=== PATIENT | male | born 1955 | race African-American/Black ===

== ENCOUNTER 2018-05-11 13:41 | Inpatient (IN) | payer BC ==
[~2018-05-11] VITALS: Ht 177.8 cm; Wt 97.5 kg
[2018-05-11] MEDS ORDERED: DEXAMETHASONE SOD PHOS 20 MG/5 ML VIAL. IM ONE (14:15)
[2018-05-11] MEDS ORDERED: MORPHINE SULFATE 10 MG/ML VIAL. SQ ONE (14:15)
[2018-05-11] MEDS ORDERED: KETOROLAC 60 MG/2 ML INJ. IM ONE (14:15)
[2018-05-11] MEDS ORDERED: diazePAM 5 MG TABLET PO ONE (14:15)
--- NOTE | 2018-05-11 14:20 | PHYS DOC ---
Adult General Chief Complaint Chief Complaint: BACK PAIN - NO INJURY HPI HPI Patient is a 62 year old male who presents complaining of 10 out of 10 left groin pain radiating into the left lower back that began one week ago. Patient states the pain is worse on certain sitting positions and movement. Patient states he tried taking [id number] pain relievers and hydrocodone but did not obtain any relief so he stopped taking them. Patient denies any injury. Denies any loss of bowel /bladder function. Denies any urgency frequency dysuria or hematuria. PCP Dr. Ben Tan. Review of Systems Review of Systems Constitutional: Denies fever or chills [] Eyes: Denies change in visual acuity, redness, or eye pain [] HENT: Denies nasal congestion or sore throat [] Respiratory: Denies cough or shortness of breath [] Cardiovascular: No additional information not addressed in HPI [] GI: Denies abdominal pain, nausea, vomiting, bloody stools or diarrhea [] : Denies dysuria or hematuria [] Musculoskeletal: Reports left groin pain radiating into the left buttock Integument: Denies rash or skin lesions [] Neurologic: Denies headache, focal weakness or sensory changes [] All other systems were reviewed and found to be within normal limits, except as documented in this note. Current Medications Current Medications Current Medications Medications (Trade) Dose Ordered Sig/Shira Start Time Stop Time Status Last Admin Dose Admin Clonidine HCl (Catapres) 0.1 mg Q6HRS PRN 05/11/18 16:30 UNV Dexamethasone Sodium Phosphate (Decadron) 10 mg 1X ONCE 05/11/18 14:15 05/11/18 14:20 DC 05/11/18 14:29 10 MG Diazepam (Valium) 5 mg 1X ONCE 05/11/18 14:15 05/11/18 14:20 DC 05/11/18 14:34 5 MG Ketorolac Tromethamine (Toradol Im) 60 mg 1X ONCE 05/11/18 14:15 05/11/18 14:20 DC 05/11/18 14:31 60 MG Morphine Sulfate (Morphine Sulfate) 4 mg PRN Q2HR PRN 05/11/18 16:30 05/12/18 16:29 UNV Ondansetron HCl (Zofran) 4 mg PRN Q8HRS PRN 05/11/18 16:30 05/12/18 16:29 UNV Allergies Allergies Allergies Coded Allergies Type Severity Reaction Last Updated Verified lisinopril Allergy Severe SWELLING 05/11/18 Yes Physical Exam Physical Exam Constitutional: Well developed, well nourished, no acute distress, non-toxic appearance. [] HENT: Normocephalic, atraumatic, bilateral external ears normal, oropharynx moist, no oral exudates, nose normal. [] Eyes: PERRLA, EOMI, conjunctiva normal, no discharge. [] Neck: Normal range of motion, no tenderness, supple, no stridor. [] Cardiovascular:Heart rate regular rhythm, no murmur [] Lungs & Thorax: Bilateral breath sounds clear to auscultation [] Abdomen: Bowel sounds normal, soft, no tenderness, no masses, no pulsatile masses. [] Skin: Warm, dry, no erythema, no rash. [] Back: No tenderness, no CVA tenderness. [] Extremities: Tenderness on palpation of the left SI joint, no midline lumbar spine tenderness, no cyanosis, no clubbing, ROM intact, no edema. [] Neurologic: Alert and oriented X 3, normal motor function, normal sensory function, no focal deficits noted. [] Psychologic: Affect normal, judgement normal, mood normal. [] Current Patient Data Vital Signs Vital Signs Date Time Temp Pulse Resp B/P (MAP) Pulse Ox O2 Delivery O2 Flow Rate FiO2 05/11/18 15:58 154/87 (109) 05/11/18 14:17 97.6 102 18 97 Room Air 97.6 EKG EKG [] Radiology/Procedures Radiology/Procedures []PROCEDURE: LUMBAR SPINE 2-3V LUMBAR SPINE 2-3V History: LOWER BACK PAIN/ LEFT SIDED PELVIC PAIN. Comparison: January 12, 2017 Right convexity thoracolumbar scoliosis is again identified. Appears similar to the previous study. Degenerative spondylosis with marginal spurring at multiple levels. This also appears similar to the previous exam. No significant spondylolisthesis. No evidence of vertebral body compression fracture IMPRESSION: Lumbar spondylosis with scoliosis. Electronically signed by: Marcelo Henning MD (05/11/2018 3:14 PM) [id number] DICTATED and SIGNED BY: MARCELO HENNING MD DATE: 05/11/18 1510 Course & Med Decision Making Course & Med Decision Making Pertinent Labs and Imaging studies reviewed. (See chart for details) This is a 62-year-old male patient presenting to the ED today with left groin pain radiating to the left buttock one week. Lumbar spine x-rays interpreted by radiologist were noted for spondylosis with the scoliosis, no acute findings. Patient was given morphine 10 mg subcutaneous, Valium, Toradol, Decadron, he states he has not obtained any relief, he is requesting to be admitted. He had a very hard time ambulating from wheel chair to cart. He was holding on anything he can to keep him up. Blood pressure 201/106 in the ED with a heart rate of low 100s. Patient was given clonidine. Patient denies any cardiac or neurological symptoms. Has history of hypertension. Did not take his medications today. Spoke with Dr. Sheriff who accepted patient for admission. Dragon Disclaimer Dragon Disclaimer This electronic medical record was generated, in whole or in part, using a voice recognition dictation system. Departure Departure Impression: Primary Impression: Intractable low back pain Additional Impression: Accelerated hypertension Disposition: ADMITTED INPATIENT Condition: STABLE Referrals: LOBO FELDER (PCP) Problem Qualifiers DANYELL EDEN [employer] May 11, 2018 14:20
--- NOTE | 2018-05-11 15:18 | RAD ---
LUMBAR SPINE 2-3V History: LOWER BACK PAIN/ LEFT SIDED PELVIC PAIN. Comparison: January 12, 2017 Right convexity thoracolumbar scoliosis is again identified. Appears similar to the previous study. Degenerative spondylosis with marginal spurring at multiple levels. This also appears similar to the previous exam. No significant spondylolisthesis. No evidence of vertebral body compression fracture IMPRESSION: Lumbar spondylosis with scoliosis. Electronically signed by: Marcelo Henning MD (05/11/2018 3:14 PM) [id number]
[2018-05-11] MEDS ORDERED: MORPHINE SULFATE 4 MG/ML VIAL. IV PRN (16:30)
[2018-05-11] MEDS ORDERED: cloNIDine HCL 0.1 MG TABLET PO ONE (16:30)
[2018-05-11] MEDS ORDERED: cloNIDine HCL 0.1 MG TABLET PO PRN (16:30)
[2018-05-11] MEDS ORDERED: ONDANSETRON PF 4 MG/2 ML VIAL. IV PRN (16:30)
[2018-05-11 19:00] VITALS: BP 156/94
[2018-05-11] MEDS ORDERED: PRED20TA PO (19:14)
[2018-05-11] MEDS ORDERED: AMLO5TAB7 PO (19:14)
[2018-05-11] MEDS ORDERED: HYDR-2758 PO (19:14)
[2018-05-11] MEDS ORDERED: LOSA1TAB25 PO (19:14)
[2018-05-11 20:04] LABS: BILIRUBIN,URINE NEGATIVE (NEG); CLARITY,URINE CLEAR; COLOR,URINE YELLOW; NITRITE,URINE NEGATIVE (NEG); PH,URINE 5.5; PROTEIN,URINE NEGATIVE (NEG-TRACE)
[2018-05-11 20:24] LABS: BACTERIA,URINE FEW /HPF (0-FEW); HYALINE CASTS, URINE MODERATE /HPF; RBC,URINE OCC /HPF (0-2); SQUAMOUS EPITHELIAL CELL,UR FEW /LPF
[2018-05-11 23:00] VITALS: BP 155/108
[2018-05-12 03:00] VITALS: BP 150/97
[2018-05-12 07:00] VITALS: BP 156/96
[2018-05-12 07:20] LABS: BASO % 0 % (0-3); EOS % 0 % (0-3); HEMATOCRIT 43.2 % (39.0-53.0); HEMOGLOBIN 15.2 g/dL (13.0-17.5); LYMPH # 1.1 x10^3/uL (1.0-4.8); LYMPH % 17 % (24-48); MEAN CORPUSCULAR HEMOGLOBIN 30 pg (25-35); MEAN CORPUSCULAR HGB CONC 35 g/dL (31-37); MEAN CORPUSCULAR VOLUME 84 fL (79-100); MONO # 0.5 x10^3/uL (0.0-1.1); MONO % 8 % (0-9); NEUT # 4.9 x10^3uL (1.8-7.7); NEUT % 75 % (31-73); PLATELET COUNT 310 x10^3/uL (140-400); RED BLOOD COUNT 5.15 x10^6/uL (4.30-5.70); RED CELL DISTRIBUTION WIDTH 14.9 % (11.5-14.5); WHITE BLOOD COUNT 6.6 x10^3/uL (4.0-11.0)
[2018-05-12 07:36] LABS: CALCIUM 8.8 mg/dL (8.5-10.1); CREATININE 1.3 mg/dL (0.7-1.3); GFR 67.7; POTASSIUM 3.5 mmol/L (3.5-5.1)
--- NOTE | 2018-05-12 08:11 | PDOC1 ---
H & P H&P HPI: Mr. Webb is a 62-year-old male with past medical history of hypertension, hyperlipidemia, chronic kidney disease stage 2, pemphigus vulgaris, erectile dysfunction who presented to the ER yesterday for lower pelvic pain that radiates to the left buttock that is intractable and was unable to be controlled with pain medication in the emergency room. Of note, the ER performed only a lumbar spine x-ray, and did not evaluate anything related to his abdomen or pelvis. Labs including a UA were fairly unremarkable. He reports this pain has occurred before in 2014 and spontaneously resolved after a thorough workup that was unremarkable per his report. He reports this pain recurred approximately a week ago with increasing pain over the last couple of days. During his last episode he had been doing stretching exercises for possible psoas muscle spasm which had helped that time, but were unhelpful at this time. He denies fever, chills, nausea, vomiting, diarrhea, constipation, melena, hematochezia. He denies penile pain or testicular pain. He denies hernia now or in the past. He denies penile discharge, dysuria, frequency, urgency. ROS: Complete review systems is negative apart from otherwise stated above. PMH: As above Family Hx: Father had congestive heart failure, heart disease, [place], hypertension. Mother had congestive heart failure, diabetes, chronic kidney disease. Social Hx: Nonsmoker, no significant alcohol use. No drug use. Surg Hx: Tonsillectomy Meds: Reviewed and reconciled Allergies: Reviewed PE: Alert, oriented, moderate distress due to pain EOMI, sclera non-icteric Neck supple RRR, no murmur CTAB, no wheezes, crackles or rhonchi Soft, NT, ND, normal bowel sounds, no rebound, guarding. Pain is reproduced with palpation of the left lower pelvic region and just superior to penis. No hernia appreciated. No edema, cyanosis. Normal capillary refill. Calm, cooperative, mood/affect within normal limits Assessment/Plan: Left lower pelvic pain Hypertension Hyperlipidemia Chronic kidney disease stage II Pemphigus vulgaris Cancel lumbar spine MRI as ordered per ED. Obtain CT abdomen and pelvis with contrast and urology consultation. Home meds continued Pain control GAUTAM GREENE MD May 12, 2018 08:11
[2018-05-12] MEDS ORDERED: CONTRAST GIVEN. MC PRN (08:45)
[2018-05-12] MEDS ORDERED: IOHEXOL 300 MG/ML 100ML VIAL. IV ONE (08:45)
[2018-05-12] MEDS ORDERED: IOHEXOL 240 MG/ML 50ML VIAL. PO ONE (08:45)
[2018-05-12] MEDS: KETOROLAC 30 MG/ML VIAL. IV PRN ×2 (08:52→16:44)
[2018-05-12] MEDS: amLODIPine BESYLATE 5 MG TABLET PO SCH (08:52)
[2018-05-12] MEDS: LOSARTAN POTASSIUM 50 MG TABLET. PO SCH (08:52)
[2018-05-12] MEDS: hydroCHLOROthiazide 12.5 MG CAPSULE PO SCH (08:52)
[2018-05-12] MEDS: predniSONE 10 MG TABLET PO SCH (09:00)
[2018-05-12] MEDS: HYDROcodone/APAP 5/325MG 1 TAB TABLET PO PRN ×2 (10:53→20:14)
[2018-05-12 11:00] VITALS: BP 146/98
--- NOTE | 2018-05-12 11:15 | PDOC2 ---
CLARISSAJEAN CARLOS Stephanie CHECK AIRMAN 05/12/18 1115: UROLOGY CONSULT Date of Consult Date of Consult DATE: 05/12/18 TIME: 11:07 Reason for Consult Reason for Consult: Left groin pain radiating into pelvic/mons pubis area Referring Physician Referring Physician: Dr. Sheriff Identification/Chief Complaint Chief Complaint Left groin pain radiating into pelvic/mons pubis area Source Source: Caregiver, Chart review, Patient History of Present Illness Reason for Visit: Patient is a 62 year old male admitted for extreme pain in the left flank/groin area which radiates into his left hip, lower back area. The pain is not over his kidneys at all, and he denies any hematuria, dysuria LUTS/nocturia or history of prostate problems or cancer. He also denies a history of kidney problems, cancer or kidney stones ever. He describers the pain as almost originating on the inside of his left thigh, near his pubic bone and radiating up into his hip joint. He denies any penile or scrotal pain or swelling and his urination is normal. He has been seen by Ortho in the past for this pain, but cannot remember what they told him. His is at bedside and they relate a history of a few different scans in the past two years that did not give them any definitive answers. She has records of a PSA less than 1 in the last year and is requesting PARTNERSHIP MANAGER do a prostate exam for him. Past Medical History Musculoskeletal: low back pain, Other (left hip pain, left groin pain. ) Renal/: No pertinent hx Current Medications Current Medications Current Medications Acetaminophen/ Hydrocodone Bitart (Lortab 5/325) 1 tab PRN Q6HRS PRN PO PAIN Last administered on 05/12/18at 10:53; Start 05/12/18 at 08:45 Amlodipine Besylate (Norvasc) 5 mg DAILY PO Last administered on 05/12/18at 08: 52; Start 05/12/18 at 09:00 Clonidine HCl (Catapres) 0.1 mg PRN Q6HRS PRN PO HYPERTENSION, SEE COMMENTS Last administered on 05/11/18at 22:48; Start 05/11/18 at 16:30; Stop 05/12/18 at 08:41; Status DC Clonidine HCl (Catapres) 0.2 mg 1X ONCE PO ; Start 05/11/18 at 16:30; Stop 05/11/18 at 16:39; Status DC Dexamethasone Sodium Phosphate (Decadron) 10 mg 1X ONCE IM Last administered on 05/11/18at 14:29; Start 05/11/18 at 14:15; Stop 05/11/18 at 14:20; Status DC Diazepam (Valium) 5 mg 1X ONCE PO Last administered on 05/11/18at 14:34; Start 05/11/18 at 14:15; Stop 05/11/18 at 14:20; Status DC Hydrochlorothiazide (Microzide) 12.5 mg DAILY PO Last administered on at 08:52; Start 05/12/18 at 09:00 Info (CONTRAST GIVEN -- Rx MONITORING) 1 each PRN DAILY PRN MC SEE COMMENTS; Start 05/12/18 at 08:45; Stop 05/14/18 at 08:44 Iohexol (Omnipaque 240 Mg/ml) 30 ml 1X ONCE PO Last administered on 05/12/18at 08:45; Start 05/12/18 at 08:45; Stop 05/12/18 at 08:46; Status DC Iohexol (Omnipaque 300 Mg/ml) 75 ml 1X ONCE IV Last administered on 05/12/18at 08:45; Start 05/12/18 at 08:45; Stop 05/12/18 at 08:46; Status DC Ketorolac Tromethamine (Toradol 30mg Vial) 15 mg PRN Q6HRS PRN IV PAIN Last administered on 05/12/18at 08:52; Start 05/12/18 at 08:45; Stop 05/17/18 at 08:44 Ketorolac Tromethamine (Toradol Im) 60 mg 1X ONCE IM Last administered on 05/11at 14:31; Start 05/11/18 at 14:15; Stop 05/11/18 at 14:20; Status DC Losartan Potassium (Cozaar) 100 mg DAILY PO Last administered on 05/12/18at 08: 52; Start 05/12/18 at 09:00 Morphine Sulfate (Morphine Sulfate) 4 mg PRN Q2HR PRN IV PAIN Last administered on 05/12/18at 06:49; Start 05/11/18 at 16:30; Stop 05/12/18 at 08:41 ; Status DC Morphine Sulfate (Morphine Sulfate) 10 mg 1X ONCE SQ Last administered on 05/11at 14:32; Start 05/11/18 at 14:15; Stop 05/11/18 at 14:20; Status DC Ondansetron HCl (Zofran) 4 mg PRN Q8HRS PRN IV NAUSEA/VOMITING; Start 05/11/18 at 16:30; Stop 05/12/18 at 16:29 Prednisone (Prednisone) 10 mg DAILY PO ; Start 05/12/18 at 09:00 Allergies Allergies: Coded Allergies: lisinopril (Verified Allergy, Severe, SWELLING, 05/11/18) ROS Review Of Systems: CONSTITUTIONAL: No fever or chills EYES: No recent changes SKIN: No rash or itching CARDIOVASCULAR: No chest pain, syncope, palpitations, or edema RESPIRATORY: No SOB or cough GASTROINTESTINAL: No nausea, vomiting or abdominal pain NEUROLOGICAL: No headaches or weakness ENDOCRINE: No cold or heat intolerance GENITOURINARY: No urgency or frequency of urination, left going pain, no private area pain MUSCULOSKELETAL: + back pain, joint pain over left hip. LYMPHATICS: No enlarged lymph nodes PSYCHIATRIC: No anxiety or depression Physical Exam Physical Exam: General: Pleasant, no acute distress, well groomed Eyes: conjunctiva anicteric, eyes full range of motion ENT: moist oral mucosa, normal dentition Neck: Trachea midline, no masses Respiratory: unlabored breathing, not using accessory muscles Abdomen: nontender, nondistended, no hepatosplenomegaly, no masses ANITA: Prostate about 40 grams, WNL. Pelvic: scrotal WNL, non tender on exam. scrotal contents WNL. Phallus WNL, No inguinal hernia Vitals VITALS Vital Signs Date Time Temp Pulse Resp B/P (MAP) Pulse Ox O2 Delivery O2 Flow Rate FiO2 05/12/18 10:53 96 Room Air 05/12/18 08:52 77 156/96 05/12/18 07:00 98.8 16 98.8 Labs Labs Laboratory Tests Test 05/11/18 20:00 05/12/18 06:40 Urine Collection Type Unknown Urine Color Yellow Urine Clarity Clear Urine pH 5.5 Urine Specific Addy 1.015 Urine Protein Negative mg/dL (NEG-TRACE) Urine Glucose (UA) Negative mg/dL (NEG) Urine Ketones (Stick) 40 mg/dL (NEG) Urine Blood Negative (NEG) Urine Nitrite Negative (NEG) Urine Bilirubin Negative (NEG) Urine Urobilinogen Dipstick 1.0 mg/dL (0.2 mg/dL) Urine Leukocyte Esterase Negative (NEG) Urine RBC Occ /HPF (0-2) Urine WBC 1-4 /HPF (0-4) Urine Squamous Epithelial Cells Few /LPF Urine Bacteria Few /HPF (0-FEW) Urine Hyaline Casts Moderate /HPF Urine Mucus Marked /LPF White Blood Count 6.6 x10^3/uL (4.0-11.0) Red Blood Count 5.15 x10^6/uL (4.30-5.70) Hemoglobin 15.2 g/dL (13.0-17.5) Hematocrit 43.2 % (39.0-53.0) Mean Corpuscular Volume 84 fL (79-100) Mean Corpuscular Hemoglobin 30 pg (25-35) Mean Corpuscular Hemoglobin Concent 35 g/dL (31-37) Red Cell Distribution Width 14.9 % (11.5-14.5) Platelet Count 310 x10^3/uL (140-400) Neutrophils (%) (Auto) 75 % (31-73) Lymphocytes (%) (Auto) 17 % (24-48) Monocytes (%) (Auto) 8 % (0-9) Eosinophils (%) (Auto) 0 % (0-3) Basophils (%) (Auto) 0 % (0-3) Neutrophils # (Auto) 4.9 x10^3uL (1.8-7.7) Lymphocytes # (Auto) 1.1 x10^3/uL (1.0-4.8) Monocytes # (Auto) 0.5 x10^3/uL (0.0-1.1) Eosinophils # (Auto) 0.0 x10^3/uL (0.0-0.7) Basophils # (Auto) 0.0 x10^3/uL (0.0-0.2) Sodium Level 139 mmol/L (136-145) Potassium Level 3.5 mmol/L (3.5-5.1) Chloride Level 103 mmol/L (98-107) Carbon Dioxide Level 24 mmol/L (21-32) Anion Gap 12 (6-14) Blood Urea Nitrogen 18 mg/dL (8-26) Creatinine 1.3 mg/dL (0.7-1.3) Estimated GFR (Cockcroft-Gault) 67.7 Glucose Level 112 mg/dL (70-99) Calcium Level 8.8 mg/dL (8.5-10.1) Laboratory Tests Test 05/11/18 20:00 05/12/18 06:40 Urine Collection Type Unknown Urine Color Yellow Urine Clarity Clear Urine pH 5.5 Urine Specific Addy 1.015 Urine Protein Negative mg/dL (NEG-TRACE) Urine Glucose (UA) Negative mg/dL (NEG) Urine Ketones (Stick) 40 mg/dL (NEG) Urine Blood Negative (NEG) Urine Nitrite Negative (NEG) Urine Bilirubin Negative (NEG) Urine Urobilinogen Dipstick 1.0 mg/dL (0.2 mg/dL) Urine Leukocyte Esterase Negative (NEG) Urine RBC Occ /HPF (0-2) Urine WBC 1-4 /HPF (0-4) Urine Squamous Epithelial Cells Few /LPF Urine Bacteria Few /HPF (0-FEW) Urine Hyaline Casts Moderate /HPF Urine Mucus Marked /LPF White Blood Count 6.6 x10^3/uL (4.0-11.0) Red Blood Count 5.15 x10^6/uL (4.30-5.70) Hemoglobin 15.2 g/dL (13.0-17.5) Hematocrit 43.2 % (39.0-53.0) Mean Corpuscular Volume 84 fL (79-100) Mean Corpuscular Hemoglobin 30 pg (25-35) Mean Corpuscular Hemoglobin Concent 35 g/dL (31-37) Red Cell Distribution Width 14.9 % (11.5-14.5) Platelet Count 310 x10^3/uL (140-400) Neutrophils (%) (Auto) 75 % (31-73) Lymphocytes (%) (Auto) 17 % (24-48) Monocytes (%) (Auto) 8 % (0-9) Eosinophils (%) (Auto) 0 % (0-3) Basophils (%) (Auto) 0 % (0-3) Neutrophils # (Auto) 4.9 x10^3uL (1.8-7.7) Lymphocytes # (Auto) 1.1 x10^3/uL (1.0-4.8) Monocytes # (Auto) 0.5 x10^3/uL (0.0-1.1) Eosinophils # (Auto) 0.0 x10^3/uL (0.0-0.7) Basophils # (Auto) 0.0 x10^3/uL (0.0-0.2) Sodium Level 139 mmol/L (136-145) Potassium Level 3.5 mmol/L (3.5-5.1) Chloride Level 103 mmol/L (98-107) Carbon Dioxide Level 24 mmol/L (21-32) Anion Gap 12 (6-14) Blood Urea Nitrogen 18 mg/dL (8-26) Creatinine 1.3 mg/dL (0.7-1.3) Estimated GFR (Cockcroft-Gault) 67.7 Glucose Level 112 mg/dL (70-99) Calcium Level 8.8 mg/dL (8.5-10.1) Assessment/Plan Assessment/Plan PSA less than 1 per record patient brought in, ANITA WNL and not overly uncomfortable during the process per patient report. A CT AB/PELVIS has been done on patient but read is not back yet. Await official read from Radiology. WBC 6.6, LAV CREWMAN 1.3, BUN 18 Urine shows few bacteria with no blood, leukocytes or nitrites. Low suspicion for infection. Pt afebrile FELIPE PARKS MD 05/13/18 1406: UROLOGY CONSULT Assessment/Plan Assessment/Plan Debilitating pinpoint tenderness superior and left lateral to the base of his penis that radiates to the left hip. Chronic in nature however, acutely worse for the past 8 days. Sx come and go. Finds relief with abducting his left thigh. UA normal. No urinary tract pathology on CT. Exam and history are not consistent with pain from pathology. Likely musculoskeletal in nature. May benefit from pelvic MRI and/or pain management service for consideration of regional nerve block. Will sign-off. Please call with questions. JEAN CARLOS ROMO APRN May 12, 2018 11:15 FELIPE PARKS MD May 13, 2018 14:06
--- NOTE | 2018-05-12 13:36 | RAD ---
CT of the abdomen and pelvis with contrast, 05/12/2018: HISTORY: Abdominal and pelvic pain Multidetector CT imaging was performed following oral and IV administration of contrast. The heart is mildly enlarged. There are 2 tiny subcentimeter low-density lesions in the right lobe of the liver these are too small to definitively characterize but are probably cysts or hepatic hamartomas. The gallbladder is unremarkable. No pancreatic abnormality is seen. The spleen is of normal size. A 2.1 cm cyst is present in the left kidney. The kidneys are otherwise unremarkable. Aortoiliac calcific plaquing is present without evidence of aneurysm. No abdominal or pelvic adenopathy is seen. Several sigmoid diverticula are noted without evidence of paracolic inflammation. The appendix is visualized and it shows no abnormality. The bowel loops are not dilated. No free fluid or free air is evident in the abdomen or pelvis. A small fat-containing umbilical hernia is present. No bowel herniation is evident. There is a moderate thoracic lumbar scoliosis with moderate multilevel degenerative change. IMPRESSION: 1. Probable small hepatic cysts. 2. Small left renal cyst. 3. Minimal sigmoid diverticulosis. 4. Small fat-containing umbilical hernia. 5. No acute abdominal or pelvic abnormality is detected. PQRS Compliance Statement: One or more of the following individualized dose reduction techniques were utilized for this examination: 1. Automated exposure control 2. Adjustment of the mA and/or kV according to patient size 3. Use of iterative reconstruction technique Electronically signed by: Graeme Harman MD (05/12/2018 1:33 PM) [facility]
[2018-05-12 15:00] VITALS: BP 160/98
[2018-05-12 19:00] VITALS: BP 170/106
[2018-05-12 23:00] VITALS: BP 161/99
[2018-05-13 03:00] VITALS: BP 146/103
[2018-05-13 07:00] VITALS: BP 157/99
[2018-05-13] MEDS: LOSARTAN POTASSIUM 50 MG TABLET. PO SCH (08:36)
[2018-05-13] MEDS: hydroCHLOROthiazide 12.5 MG CAPSULE PO SCH (08:36)
[2018-05-13] MEDS: amLODIPine BESYLATE 5 MG TABLET PO SCH (08:37)
[2018-05-13] MEDS: HYDROcodone/APAP 5/325MG 1 TAB TABLET PO PRN ×2 (08:37→19:23)
[2018-05-13] MEDS: predniSONE 10 MG TABLET PO SCH (08:37)
[2018-05-13 11:00] VITALS: BP 161/59
[2018-05-13] MEDS: KETOROLAC 30 MG/ML VIAL. IV PRN (13:54)
[2018-05-13 15:00] VITALS: BP 165/107
[2018-05-13 19:00] VITALS: BP 159/102
[2018-05-13 22:36] VITALS: BP 142/97
[2018-05-14] MEDS: KETOROLAC 30 MG/ML VIAL. IV PRN (01:43)
[2018-05-14 02:47] VITALS: BP 162/99
[2018-05-14 06:35] VITALS: BP 152/101
[2018-05-14] MEDS: LOSARTAN POTASSIUM 50 MG TABLET. PO SCH (09:35)
[2018-05-14] MEDS: hydroCHLOROthiazide 12.5 MG CAPSULE PO SCH (09:36)
[2018-05-14] MEDS: amLODIPine BESYLATE 5 MG TABLET PO SCH (09:36)
[2018-05-14] MEDS: predniSONE 10 MG TABLET PO SCH (09:37)
[2018-05-14 11:00] VITALS: BP 158/99
[2018-05-14] MEDS: CELECOXIB 100 MG CAPSULE. PO SCH ×2 (11:53→20:20)
[2018-05-14] MEDS ORDERED: methylPREDNISolone SOD SUCC PF 125 MG/2 ML VIAL. IV ONE (12:15)
[2018-05-14 15:00] VITALS: BP 186/117
[2018-05-14 19:00] VITALS: BP 171/97
--- NOTE | 2018-05-14 22:30 | PN ---
DATE: 05/14/2018 LOCATION: He is in room 569. SUBJECTIVE: The patient is awake, alert. Family is present. He still has intractable pain in the left lower back, buttocks around to the groin and pubic area. If he can lay still, he can get the pain to sit down. It is much worse with any attempted movement, especially trying to roll over or trying to get out of bed. Morphine and hydrocodone have not helped the pain significantly. OBJECTIVE: VITAL SIGNS: Stable. He is afebrile. Blood pressures are consistently somewhat elevated. LABORATORY DATA: Initial laboratory is unrewarding. Urology has seen him and feels like this pain is non-urological. IMAGING DATA: Lumbar spine film showed lumbar spondylosis with scoliosis. CT scanning of the abdomen and pelvis showed probable small hepatic cyst, small left renal cyst, minimal sigmoid diverticulosis with small fat-containing umbilical hernia. No acute abdominal or pelvic abnormalities are noted. I can do full range of motion of his hip with no pain. He is tender over the sacroiliac joint, as well as on the pubic area and is somewhat tender with resisted flexion of the thigh on the left. I can appreciate no hernia. IMPRESSION: 1. Severe left buttocks pelvic pain. 2. Hypertension. PLAN: I am going to add a dose of Solu-Medrol, as well as Celebrex and ask Dr. Oh to see him, as I feel this is more musculoskeletal in nature and did not believe it is related to any sort of hip nerve hernia, etc. or problems. CAMILLE WALLACE MD DR: MARCELLE/juan JOB#: [id number] / [id number]
[2018-05-14 23:00] VITALS: BP 171/110
[2018-05-15] VITALS (7 sets, daily range): BP systolic 158–195; BP diastolic 89–109
[2018-05-15] MEDS ORDERED: methylPREDNISolone ACETATE 40 MG/ML VIAL. IM ONE ×2 (07:45)
[2018-05-15] MEDS ORDERED: BUPIVACAINE MPF 0.25% 10 ML VIAL. IJ ONE (07:45)
[2018-05-15] MEDS: CELECOXIB 100 MG CAPSULE. PO SCH (08:16)
[2018-05-15] MEDS: amLODIPine BESYLATE 5 MG TABLET PO SCH (08:17)
[2018-05-15] MEDS: LOSARTAN POTASSIUM 50 MG TABLET. PO SCH (08:18)
--- NOTE | 2018-05-15 08:47 | PDOC ---
Provider Note Provider Note [id number] MICHAEL HEATH MD May 15, 2018 08:47
[2018-05-15] MEDS ORDERED: predniSONE 10 MG TABLET PO SCH (09:00)
[2018-05-15] MEDS: GABAPENTIN 100 MG CAPSULE. PO SCH ×2 (11:05→14:32)
--- NOTE | 2018-05-15 12:25 | RAD ---
MRI of the lumbar spine without contrast 05/15/2018 CLINICAL HISTORY: Low back pain with bilateral leg weakness for 9 days. TECHNIQUE: Unenhanced T1-weighted and T2-weighted sagittal and axial and inversion recovery sagittal images of the lumbar spine were obtained. FINDINGS: Comparison is made to radiographs of the lumbar spine dated 05/11/2018. Moderate S-shaped curvature of the thoracolumbar spine is seen. Degenerative signal changes are seen involving the L1-2, L2-3, L3-4 and L4-5 discs. Degenerative signal changes are seen within the marrow surrounding these discs. The conus medullaris is normal in position and signal characteristics. Rounded high signal intensity lesions are seen on the T2-weighted images involving both kidneys, left greater than right. These measure 3 mm in 2.4 cm in size. They likely represent cysts. At the L1-2 disc space there is a mild generalized disc bulge. This is eccentric to the left. Degenerative changes are seen involving the facet joints bilaterally. There is mild ligamentum flavum hypertrophy bilaterally. These findings when combine result in mild left lateral central spinal canal stenosis. Mild to moderate left neural foraminal stenosis is seen. The right neural foramen is patent. At the L2-3 disc space there is a mild to moderate generalized disc bulge. This is eccentric to the left. Degenerative changes are seen involving the facet joints bilaterally. There is mild ligamentum flavum hypertrophy bilaterally. These findings when combined result in mild left-sided central spinal canal stenosis. Moderate to severe left neural foraminal stenosis is seen. Mild right neural foraminal stenosis is noted. At the L3-4 disc space there is a mild generalized disc bulge. This is eccentric to the right. Degenerative changes are seen involving the facet joints bilaterally. There is mild ligamentum flavum hypertrophy bilaterally. These findings do not result in significant central spinal canal stenosis. Mild right neural foraminal stenosis is seen. The left neural foramen is patent. At the L4-5 disc space there is a mild to moderate generalized disc bulge. This is eccentric to the right. Degenerative changes are seen involving the facet joints bilaterally. Small right facet joint effusion is seen. There is mild to moderate ligamentum flavum hypertrophy bilaterally. These findings do not result in significant central spinal canal stenosis. Mild to moderate right neural foraminal stenosis is seen. The left neural foramen is patent. At the L5-S1 disc space there is a minimal generalized disc bulge. Degenerative changes are seen involving the facet joints bilaterally. These findings do not result in significant central spinal canal or neural foraminal stenosis. IMPRESSION: The changes of degenerative disc disease are seen throughout the lumbar spine. These findings result in mild left lateral central spinal canal stenosis at L1-2 and mild left-sided central spinal canal stenosis at L2-3. Multilevel neural foraminal stenosis of varying severity is seen as outlined above. Electronically signed by: Giovany Simms MD (05/15/2018 12:22 PM) [id number]
--- NOTE | 2018-05-15 12:30 | CONS ---
DATE OF CONSULTATION: 05/15/2018 I saw him at the request of Dr. Palma on 05/15/2018. ATTENDING PHYSICIAN: Dr. Sheriff. LOCATION: He is in room 569. 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 The patient with history of hypertension, hyperlipidemia, chronic kidney disease stage 2, pemphigus vulgaris, erectile dysfunction, admitted through the Emergency Room on 05/13/2018 for left pelvic area pain radiating to his left buttock and to his lower back, unable to control with pain medication. He had x-rays of lumbar spine in the Emergency Room, which revealed mild spondylosis and scoliosis. The patient had CT scan of the pelvis, which revealed probable small hepatic cyst, small left renal cyst, minimal sigmoid diverticulosis, small fat containing umbilical hernia. No acute abdominal or pelvic abnormality was noted. It revealed moderate thoracic-lumbar scoliosis with moderate multilevel degenerative changes. The patient admits that pain started about 10-11 days ago without any specific injury and is not getting any better. The patient denies any specific injury. He denies any radiation of pain to the extremities or any tingling and numbness sensation in the extremities or any weakness and also denies any trouble with his bowel or bladder control. FAMILY HISTORY: Congestive heart failure with father, heart disease, myocardial infarction, hypertension. Mother had congestive heart failure, diabetes and chronic kidney disease. PAST SURGICAL HISTORY: The patient is status post tonsillectomy. ALLERGIES: HE IS KNOWN ALLERGIC TO LISINOPRIL. PHYSICAL EXAMINATION: Today revealed a middle-aged male. He is alert, in moderate distress. He is protecting his left hip pelvic area. He had pain free range of motion of left hip joint. He had tenderness to palpation over left sacroiliac joint area, gluteal muscles and trochanteric bursa. Straight leg raising test is negative bilaterally. He is having pain while rolling from side to side. The patient had equal perception of touch and pinprick sensation bilaterally. He had 5/5 grade muscle strength overall. Deep tendon reflexes are 2+ and symmetrical. He had multiple skin lesions from his pemphigus vulgaris. ASSESSMENT: Left buttock and sacroiliac joint area pain, most probably from degenerative disk disease. No clinical evidence of lumbar radiculopathy. Also, present with left gluteal muscle strain and left trochanteric bursitis. RECOMMENDATIONS: To proceed with injecting painful left sacroiliac joint area and left trochanteric bursa and to obtain MRI scan of his lumbar vertebrae. To ask Physical Therapy to try physical modalities and home when medically stable with outpatient followup. To start him back on prednisone by mouth. Dr. Palma, I appreciate asking me to participate in the care of this interesting patient. I will be glad to follow him with you as needed for the rehabilitation. ALEX MENARD MD DR: ANURAG/nts JOB#: [id number] / [id number]
--- NOTE | 2018-05-15 12:58 | RAD ---
Pelvis with left hip, 3 views, 05/15/2018: HISTORY: Hip pain No fracture or dislocation is identified. The hip joints are well-maintained. Degenerative changes are evident in the lumbar spine. There is contrast material in the colon from a recent CT study. IMPRESSION: No significant left hip abnormality is detected. Electronically signed by: Graeme Harman MD (05/15/2018 12:54 PM) [facility]
[2018-05-15] MEDS ORDERED: oxyCODONE/APAP 10/325 1 TAB TABLET PO PRN (17:15)
[2018-05-15] MEDS ORDERED: BISACODYL 5 MG TABLET.DR. PO PRN (17:15)
[2018-05-15] MEDS ORDERED: MAGNESIUM HYDROXIDE 2,400 MG/30 ML ORAL.SUSP. PO PRN (17:15)
[2018-05-15] MEDS: LIDOCAINE (700MG/PATCH) PATCH. TD SCH (18:10)
[2018-05-15] MEDS: SENNOSIDES/DOCUSATE 8.6/50MG TABLET. PO SCH (21:00)
[2018-05-16] VITALS (7 sets, daily range): BP systolic 151–187; BP diastolic 87–111
--- NOTE | 2018-05-16 01:06 | PN ---
DATE: 05/15/2018 The patient continues to have intractable pain in the left lower back and sacroiliac type area radiating to what appears to be toward the hip and the anterior pelvic area. He is not particularly tender over the symphysis and the hip range of motion is normal without pain. He is mildly tender over the greater trochanteric bursa, but he is able to lie on that and he is more tender in the sacroiliac joint area. His symptoms do not radiate down the leg and I believe is more likely to be something like an L3 or L4 radiculopathy than a pelvic or hip problem. We will go ahead and x-ray the pelvis and hip and concur with the MRI that Dr. Londono has ordered. We will do a sed rate as well and a trial of gabapentin to see if we get any pain relief as Celebrex and steroids have not helped at all so far. Continues to have intractable pain and not able to bear weight and thus needs to be in the hospital still. MICHAEL HEATH MD DR: VINOD/juan JOB#: [id number] / [id number]
--- NOTE | 2018-05-16 08:33 | PDOC ---
Provider Note Provider Note [id number] MICHAEL HEATH MD May 16, 2018 08:33
[2018-05-16] MEDS: SENNOSIDES/DOCUSATE 8.6/50MG TABLET. PO SCH ×2 (08:44→21:00)
[2018-05-16] MEDS: amLODIPine BESYLATE 10 MG TABLET PO SCH (08:44)
[2018-05-16] MEDS: LOSARTAN POTASSIUM 50 MG TABLET. PO SCH (08:45)
[2018-05-16] MEDS: GABAPENTIN 100 MG CAPSULE. PO SCH ×3 (08:45→21:00)
[2018-05-16] MEDS: PATCH REMOVAL. MC SCH (08:45)
[2018-05-16] MEDS ORDERED: methylPREDNISolone ACETATE 80 MG/ML VIAL. ONE (10:30)
[2018-05-16] MEDS ORDERED: IOHEXOL 180 MG/ML 10 ML VIAL. ONE (10:30)
[2018-05-16] MEDS ORDERED: methylPREDNISolone ACETATE 40 MG/ML VIAL. ONE (10:30)
--- NOTE | 2018-05-16 12:57 | PDOC ---
PROGRESS NOTES Subjective Subjective He admits continued back and left hip pain with movement but slept better last evening. Objective Objective Vital Signs Date Time Temp Pulse Resp B/P (MAP) Pulse Ox O2 Delivery O2 Flow Rate FiO2 05/16/18 11:09 98.7 86 18 176/111 (132) 94 Room Air 98.7 Intake and Output 05/16/18 07:00 Intake Total 900 ml Output Total 0 ml Balance 900 ml Intake Oral 900 ml Output Urine Total 0 ml # Voids 3 Physical Exam Physical Exam He is alert and lying on his left side and does not seem to be in any significant distress. Assessment Assessment Problems Medical Problems: (1) Accelerated hypertension Status: Acute (2) Intractable low back pain Status: Acute Plan Plan of Care To proceed with lumbar epidural steroid injections and home when he can get around with less pain. Comment Review of Relevant I have reviewed the following items heath (where applicable) has been applied. Labs Laboratory Tests Test 05/15/18 09:30 Erythrocyte Sedimentation Rate 16 (0-15) Medications Current Medications Morphine Sulfate (Morphine Sulfate) 10 mg 1X ONCE SQ Last administered on 05/11at 14:32; Start 05/11/18 at 14:15; Stop 05/11/18 at 14:20; Status DC Diazepam (Valium) 5 mg 1X ONCE PO Last administered on 05/11/18at 14:34; Start 05/11/18 at 14:15; Stop 05/11/18 at 14:20; Status DC Ketorolac Tromethamine (Toradol Im) 60 mg 1X ONCE IM Last administered on 05/11at 14:31; Start 05/11/18 at 14:15; Stop 05/11/18 at 14:20; Status DC Dexamethasone Sodium Phosphate (Decadron) 10 mg 1X ONCE IM Last administered on 05/11/18at 14:29; Start 05/11/18 at 14:15; Stop 05/11/18 at 14:20; Status DC Ondansetron HCl (Zofran) 4 mg PRN Q8HRS PRN IV NAUSEA/VOMITING; Start 05/11/18 at 16:30; Stop 05/12/18 at 16:29; Status DC Morphine Sulfate (Morphine Sulfate) 4 mg PRN Q2HR PRN IV PAIN Last administered on 05/12/18at 06:49; Start 05/11/18 at 16:30; Stop 05/12/18 at 08:41 ; Status DC Clonidine HCl (Catapres) 0.2 mg 1X ONCE PO ; Start 05/11/18 at 16:30; Stop 05/11/18 at 16:39; Status DC Clonidine HCl (Catapres) 0.1 mg PRN Q6HRS PRN PO HYPERTENSION, SEE COMMENTS Last administered on 05/11/18at 22:48; Start 05/11/18 at 16:30; Stop 05/12/18 at 08:41; Status DC Iohexol (Omnipaque 240 Mg/ml) 30 ml 1X ONCE PO Last administered on 05/12/18at 08:45; Start 05/12/18 at 08:45; Stop 05/12/18 at 08:46; Status DC Iohexol (Omnipaque 300 Mg/ml) 75 ml 1X ONCE IV Last administered on 05/12/18at 08:45; Start 05/12/18 at 08:45; Stop 05/12/18 at 08:46; Status DC Amlodipine Besylate (Norvasc) 5 mg DAILY PO Last administered on 05/15/18at 08: 17; Start 05/12/18 at 09:00; Stop 05/16/18 at 08:34; Status DC Acetaminophen/ Hydrocodone Bitart (Lortab 5/325) 1 tab PRN Q6HRS PRN PO PAIN Last administered on 05/13/18at 19:23; Start 05/12/18 at 08:45; Stop 05/15/18 at 17:11; Status DC Prednisone (Prednisone) 10 mg DAILY PO Last administered on 05/14/18at 09:37; Start 05/12/18 at 09:00; Stop 05/14/18 at 15:51; Status DC Losartan Potassium (Cozaar) 100 mg DAILY PO Last administered on 05/16/18at 08: 45; Start 05/12/18 at 09:00 Info (CONTRAST GIVEN -- Rx MONITORING) 1 each PRN DAILY PRN MC SEE COMMENTS; Start 05/12/18 at 08:45; Stop 05/14/18 at 08:44; Status DC Hydrochlorothiazide (Microzide) 12.5 mg DAILY PO Last administered on at 09:36; Start 05/12/18 at 09:00; Stop 05/14/18 at 15:51; Status DC Ketorolac Tromethamine (Toradol 30mg Vial) 15 mg PRN Q6HRS PRN IV PAIN Last administered on 05/14/18at 01:43; Start 05/12/18 at 08:45; Stop 05/17/18 at 08:44 Methylprednisolone Sodium Succinate (SOLU-Medrol 125MG VIAL) 125 mg 1X ONCE IV Last administered on 05/14/18at 11:53; Start 05/14/18 at 12:15; Stop 05/14/18 at 12:16; Status DC Celecoxib (CeleBREX) 200 mg BID PO Last administered on 05/15/18at 08:16; Start 05/14/18 at 12:00; Stop 05/15/18 at 17:11; Status DC Methylprednisolone Acetate (DEPO-Medrol 40MG VIAL) 40 mg 1X ONCE IM ; Start at 07:45; Stop 05/15/18 at 08:05; Status DC Bupivacaine HCl (Sensorcaine-Mpf 0.25%) 10 ml 1X ONCE IJ ; Start 05/15/18 at 07 :45; Stop 05/15/18 at 08:05; Status DC Methylprednisolone Acetate (DEPO-Medrol 40MG VIAL) 40 mg 1X ONCE IM ; Start at 07:45; Stop 05/15/18 at 08:05; Status DC Prednisone (Prednisone) 10 mg DAILY PO Last administered on 05/15/18at 08:16; Start 05/15/18 at 09:00; Stop 05/15/18 at 09:00; Status DC Gabapentin (Neurontin) 200 mg TID PO Last administered on 05/15/18at 14:32; Start 05/15/18 at 09:00; Stop 05/15/18 at 17:11; Status DC Oxycodone/ Acetaminophen (Percocet 10/325) 1 tab PRN Q6HRS PRN PO PAIN Last administered on 05/15/18at 18:09; Start 05/15/18 at 17:15 Lidocaine (Lidoderm) 2 patch QHS TD Last administered on 05/15/18at 18:10; Start 05/15/18 at 18:00 Bisacodyl (Dulcolax Tab) 10 mg PRN DAILY PRN PO CONSTIPATION; Start 05/15/18 at 17:15 Magnesium Hydroxide (Milk Of Magnesia) 2,400 mg PRN DAILY PRN PO CONSTIPATION Last administered on 05/16/18at 08:44; Start 05/15/18 at 17:15 Senna/Docusate Sodium (Senna Plus) 1 tab BID PO Last administered on 05/16/18at 08:44; Start 05/15/18 at 21:00 Miscellaneous (Lidoderm Patch Removal) 1 ea DAILY MC Last administered on at 08:45; Start 05/16/18 at 09:00 Gabapentin (Neurontin) 200 mg TID PO ; Start 05/16/18 at 09:00 Amlodipine Besylate (Norvasc) 10 mg DAILY PO Last administered on 05/16/18at 08: 44; Start 05/16/18 at 09:00 Methylprednisolone Acetate (DEPO-Medrol 40MG VIAL) 40 mg STK-MED ONCE .ROUTE ; Start 05/16/18 at 10:30; Stop 05/16/18 at 10:31; Status DC Iohexol (Omnipaque 180 Mg/ml) 10 ml STK-MED ONCE .ROUTE ; Start 05/16/18 at 10: 30; Stop 05/16/18 at 10:31; Status DC Methylprednisolone Acetate (DEPO-Medrol 80MG VIAL) 80 mg STK-MED ONCE .ROUTE ; Start 05/16/18 at 10:30; Stop 05/16/18 at 10:31; Status DC Active Scripts Active Reported Hydrocodone-Apap 5-325 (Hydrocodone Bit/Acetaminophen) 1 Each Tablet 1 Tab PO PRN Q6HRS PRN Prednisone 20 Mg Tablet 0.5 Tab PO DAILY Amlodipine Besylate 5 Mg Tablet 5 Mg PO DAILY Losartan-Hctz 100-12.5 Mg Tab (Losartan/Hydrochlorothiazide) 1 Each Tablet 1 Each PO DAILY Vitals/I & O Vital Sign - Last 24 Hours 05/15/18 05/15/18 05/15/18 05/15/18 15:00 18:09 19:00 19:19 Temp 99.1 98.3 99.1 98.3 Pulse 86 76 Resp 16 17 B/P (MAP) 160/101 (120) 173/99 (123) Pulse Ox 93 94 O2 Delivery Room Air Room Air Room Air Room Air 11/5/18 05/15/18 05/16/18 05/16/18 20:20 23:00 03:00 07:00 Temp 98.1 98.0 97.8 98.1 98.0 97.8 Pulse 72 76 81 Resp 16 16 20 B/P (MAP) 158/97 (117) 184/100 (128) 183/95 (124) Pulse Ox 97 93 96 O2 Delivery Room Air Room Air Room Air Room Air 05/16/18 05/16/18 05/16/18 05/16/18 08:08 08:44 08:45 10:51 Temp 97.8 97.8 Pulse 81 81 76 Resp 20 B/P (MAP) 183/95 183/95 187/89 (121) Pulse Ox 93 O2 Delivery Room Air Room Air 05/16/18 11:09 Temp 98.7 98.7 Pulse 86 Resp 18 B/P (MAP) 176/111 (132) Pulse Ox 94 O2 Delivery Room Air Intake and Output 05/15/18 05/15/18 05/16/18 15:00 23:00 07:00 Intake Total 600 ml 300 ml Output Total 0 ml Balance 600 ml 300 ml 0 ml ALEX MENARD MD May 16, 2018 12:57
--- NOTE | 2018-05-16 12:59 | PDOC ---
SUBJECTIVE Subjective left pelvic pain OBJECTIVE Objective 62yo male C/O low back and left groin pain X 1 week, worse x 2 days with wt. bearing Vital Signs Vital Signs Date Time Temp Pulse Resp B/P (MAP) Pulse Ox O2 Delivery O2 Flow Rate FiO2 05/16/18 11:09 98.7 86 18 176/111 (132) 94 Room Air 98.7 05/16/18 10:51 97.8 76 20 187/89 (121) 93 Room Air 97.8 05/16/18 08:45 81 183/95 05/16/18 08:44 81 183/95 05/16/18 08:08 Room Air 05/16/18 07:00 97.8 81 20 183/95 (124) 96 Room Air 97.8 05/16/18 03:00 98.0 76 16 184/100 (128) 93 Room Air 98.0 05/15/18 23:00 98.1 72 16 158/97 (117) 97 Room Air 98.1 05/15/18 20:20 Room Air 05/15/18 19:19 Room Air 05/15/18 19:00 98.3 76 17 173/99 (123) 94 Room Air 98.3 05/15/18 18:09 Room Air 05/15/18 15:00 99.1 86 16 160/101 (120) 93 Room Air 99.1 I & O Intake and Output 05/16/18 07:00 Intake Total 900 ml Output Total 0 ml Balance 900 ml Intake Oral 900 ml Output Urine Total 0 ml # Voids 3 PHYSICAL EXAM Physical Exam A&O, appropriate LE's DTR's 1+/4 bilat Motor 4/5 left; 5/5 rt ASSESSMENT/PLAN Assessment/Plan MRI reviewed with Pt. & spouse Plan LESI today May F/U as OP REY LANDAVERDE MD May 16, 2018 12:59
[2018-05-16] MEDS: LIDOCAINE (700MG/PATCH) PATCH. TD SCH (21:00)
--- NOTE | 2018-05-16 21:15 | PN ---
DATE: 05/16/2018 SUBJECTIVE: The patient has continued pain, what appears to be maybe an L2 or L3 left radicular pain and perhaps some sacroiliitis as well. Sed rate was normal. Blood pressure continues to be mildly elevated with pain behavior. Gabapentin trial was started, but somehow stopped, so we will resume that. I agree with the Pain Clinic consult with Dr. Brower as I think he may well have both an upper lumbar radicular pattern of pain somewhat unusual and also some sacroiliac joint pain. They are willing to consider epidural injections if Dr. Brower recommends after reviewing the anatomic studies and physical exam as the other option at this point as medications including steroids have been of no benefit. MICHAEL HEATH MD DR: VINOD/nts JOB#: [id number] / [id number]
[2018-05-17 03:00] VITALS: BP 168/106
[2018-05-17 07:00] VITALS: BP 154/78
[2018-05-17] MEDS: LOSARTAN POTASSIUM 50 MG TABLET. PO SCH (08:39)
--- NOTE | 2018-05-17 08:39 | DISCH ---
DISCHARGE INSTRUCTIONS Condition on Discharge Condition on Discharge: Stable Activity After Discharge Activity Instructions for Disc: No restrictions Diet after Discharge Diet after Discharge: Low Sodium 4 gm Follow-Up Follow up with: as scheduled MICHAEL HEATH MD May 17, 2018 08:39
[2018-05-17 08:40] VITALS: BP 154/78
[2018-05-17] MEDS: amLODIPine BESYLATE 10 MG TABLET PO SCH (08:40)
[2018-05-17] MEDS: PATCH REMOVAL. MC SCH (08:43)
[2018-05-17] MEDS: SENNOSIDES/DOCUSATE 8.6/50MG TABLET. PO SCH (08:44)
--- NOTE | 2018-05-17 08:44 | PDOC ---
Provider Note Provider Note [id number] MICHAEL HEATH MD May 17, 2018 08:44
--- NOTE | 2018-05-17 09:56 | PDOC ---
PROGRESS NOTES Subjective Subjective He admits not much help with lumbar epidural steroid injection done yesterday. Objective Objective Vital Signs Date Time Temp Pulse Resp B/P (MAP) Pulse Ox O2 Delivery O2 Flow Rate FiO2 05/17/18 08:40 83 154/78 05/17/18 08:30 Room Air 05/17/18 07:00 98.3 16 96 98.3 Intake and Output 05/17/18 07:00 Intake Total 1880 ml Output Total 600 ml Balance 1280 ml Intake Oral 1880 ml Output Urine Total 600 ml # Voids 1 Physical Exam Physical Exam He is lying in bed on his left side and he continues to protect his left buttock area and he had tenderness to palpation over left sacroiliac joint, trochanteric bursa,hip adductor tendon attachment to pubic tubercle and gluteal muscles.He had significant increased pain with any movement of left hip area. He continues with hypertension. Assessment Assessment Problems Medical Problems: (1) Accelerated hypertension Status: Acute (2) Intractable low back pain Status: Acute Plan Plan of Care I will be glad to consider injecting his left sacroiliac joint and trochanteric bursa when his hypertension is under good control. Comment Review of Relevant I have reviewed the following items heath (where applicable) has been applied. Medications Current Medications Morphine Sulfate (Morphine Sulfate) 10 mg 1X ONCE SQ Last administered on 05/11at 14:32; Start 05/11/18 at 14:15; Stop 05/11/18 at 14:20; Status DC Diazepam (Valium) 5 mg 1X ONCE PO Last administered on 05/11/18at 14:34; Start 05/11/18 at 14:15; Stop 05/11/18 at 14:20; Status DC Ketorolac Tromethamine (Toradol Im) 60 mg 1X ONCE IM Last administered on 05/11at 14:31; Start 05/11/18 at 14:15; Stop 05/11/18 at 14:20; Status DC Dexamethasone Sodium Phosphate (Decadron) 10 mg 1X ONCE IM Last administered on 05/11/18at 14:29; Start 05/11/18 at 14:15; Stop 05/11/18 at 14:20; Status DC Ondansetron HCl (Zofran) 4 mg PRN Q8HRS PRN IV NAUSEA/VOMITING; Start 05/11/18 at 16:30; Stop 05/12/18 at 16:29; Status DC Morphine Sulfate (Morphine Sulfate) 4 mg PRN Q2HR PRN IV PAIN Last administered on 05/12/18at 06:49; Start 05/11/18 at 16:30; Stop 05/12/18 at 08:41 ; Status DC Clonidine HCl (Catapres) 0.2 mg 1X ONCE PO ; Start 05/11/18 at 16:30; Stop 05/11/18 at 16:39; Status DC Clonidine HCl (Catapres) 0.1 mg PRN Q6HRS PRN PO HYPERTENSION, SEE COMMENTS Last administered on 05/11/18at 22:48; Start 05/11/18 at 16:30; Stop 05/12/18 at 08:41; Status DC Iohexol (Omnipaque 240 Mg/ml) 30 ml 1X ONCE PO Last administered on 05/12/18at 08:45; Start 05/12/18 at 08:45; Stop 05/12/18 at 08:46; Status DC Iohexol (Omnipaque 300 Mg/ml) 75 ml 1X ONCE IV Last administered on 05/12/18at 08:45; Start 05/12/18 at 08:45; Stop 05/12/18 at 08:46; Status DC Amlodipine Besylate (Norvasc) 5 mg DAILY PO Last administered on 05/15/18at 08: 17; Start 05/12/18 at 09:00; Stop 05/16/18 at 08:34; Status DC Acetaminophen/ Hydrocodone Bitart (Lortab 5/325) 1 tab PRN Q6HRS PRN PO PAIN Last administered on 05/13/18at 19:23; Start 05/12/18 at 08:45; Stop 05/15/18 at 17:11; Status DC Prednisone (Prednisone) 10 mg DAILY PO Last administered on 05/14/18at 09:37; Start 05/12/18 at 09:00; Stop 05/14/18 at 15:51; Status DC Losartan Potassium (Cozaar) 100 mg DAILY PO Last administered on 05/17/18at 08: 39; Start 05/12/18 at 09:00 Info (CONTRAST GIVEN -- Rx MONITORING) 1 each PRN DAILY PRN MC SEE COMMENTS; Start 05/12/18 at 08:45; Stop 05/14/18 at 08:44; Status DC Hydrochlorothiazide (Microzide) 12.5 mg DAILY PO Last administered on at 09:36; Start 05/12/18 at 09:00; Stop 05/14/18 at 15:51; Status DC Ketorolac Tromethamine (Toradol 30mg Vial) 15 mg PRN Q6HRS PRN IV PAIN Last administered on 05/14/18at 01:43; Start 05/12/18 at 08:45; Stop 05/17/18 at 08:44 ; Status DC Methylprednisolone Sodium Succinate (SOLU-Medrol 125MG VIAL) 125 mg 1X ONCE IV Last administered on 05/14/18at 11:53; Start 05/14/18 at 12:15; Stop 05/14/18 at 12:16; Status DC Celecoxib (CeleBREX) 200 mg BID PO Last administered on 05/15/18at 08:16; Start 05/14/18 at 12:00; Stop 05/15/18 at 17:11; Status DC Methylprednisolone Acetate (DEPO-Medrol 40MG VIAL) 40 mg 1X ONCE IM ; Start at 07:45; Stop 05/15/18 at 08:05; Status DC Bupivacaine HCl (Sensorcaine-Mpf 0.25%) 10 ml 1X ONCE IJ ; Start 05/15/18 at 07 :45; Stop 05/15/18 at 08:05; Status DC Methylprednisolone Acetate (DEPO-Medrol 40MG VIAL) 40 mg 1X ONCE IM ; Start at 07:45; Stop 05/15/18 at 08:05; Status DC Prednisone (Prednisone) 10 mg DAILY PO Last administered on 05/15/18at 08:16; Start 05/15/18 at 09:00; Stop 05/15/18 at 09:00; Status DC Gabapentin (Neurontin) 200 mg TID PO Last administered on 05/15/18at 14:32; Start 05/15/18 at 09:00; Stop 05/15/18 at 17:11; Status DC Oxycodone/ Acetaminophen (Percocet 10/325) 1 tab PRN Q6HRS PRN PO PAIN Last administered on 05/15/18at 18:09; Start 05/15/18 at 17:15; Stop 05/17/18 at 08:40 ; Status DC Lidocaine (Lidoderm) 2 patch QHS TD Last administered on 05/15/18at 18:10; Start 05/15/18 at 18:00; Stop 05/17/18 at 08:40; Status DC Bisacodyl (Dulcolax Tab) 10 mg PRN DAILY PRN PO CONSTIPATION; Start 05/15/18 at 17:15 Magnesium Hydroxide (Milk Of Magnesia) 2,400 mg PRN DAILY PRN PO CONSTIPATION Last administered on 05/16/18at 08:44; Start 05/15/18 at 17:15 Senna/Docusate Sodium (Senna Plus) 1 tab BID PO Last administered on 05/16/18at 08:44; Start 05/15/18 at 21:00 Miscellaneous (Lidoderm Patch Removal) 1 ea DAILY MC Last administered on at 08:45; Start 05/16/18 at 09:00 Gabapentin (Neurontin) 200 mg TID PO ; Start 05/16/18 at 09:00; Stop 05/17/18 at 08:40; Status DC Amlodipine Besylate (Norvasc) 10 mg DAILY PO Last administered on 05/17/18at 08: 40; Start 05/16/18 at 09:00 Methylprednisolone Acetate (DEPO-Medrol 40MG VIAL) 40 mg STK-MED ONCE .ROUTE ; Start 05/16/18 at 10:30; Stop 05/16/18 at 10:31; Status DC Iohexol (Omnipaque 180 Mg/ml) 10 ml STK-MED ONCE .ROUTE ; Start 05/16/18 at 10: 30; Stop 05/16/18 at 10:31; Status DC Methylprednisolone Acetate (DEPO-Medrol 80MG VIAL) 80 mg STK-MED ONCE .ROUTE ; Start 05/16/18 at 10:30; Stop 05/16/18 at 10:31; Status DC Active Scripts Active Reported Hydrocodone-Apap 5-325 (Hydrocodone Bit/Acetaminophen) 1 Each Tablet 1 Tab PO PRN Q6HRS PRN Prednisone 20 Mg Tablet 0.5 Tab PO DAILY Amlodipine Besylate 5 Mg Tablet 5 Mg PO DAILY Losartan-Hctz 100-12.5 Mg Tab (Losartan/Hydrochlorothiazide) 1 Each Tablet 1 Each PO DAILY Vitals/I & O Vital Sign - Last 24 Hours 05/16/18 05/16/18 05/16/18 05/16/18 10:51 11:09 14:45 19:00 Temp 97.8 98.7 99.0 99.2 97.8 98.7 99.0 99.2 Pulse 76 86 94 86 Resp 20 18 12 20 B/P (MAP) 187/89 (121) 176/111 (132) 151/87 (108) 170/104 (126) Pulse Ox 93 94 95 97 O2 Delivery Room Air Room Air Room Air Room Air 05/16/18 05/17/18 05/17/18 05/17/18 23:00 03:00 07:00 08:30 Temp 99.0 99.0 98.3 99.0 99.0 98.3 Pulse 86 88 83 Resp 20 20 16 B/P (MAP) 152/94 (113) 168/106 (126) 154/78 (103) Pulse Ox 94 95 96 O2 Delivery Room Air Room Air Room Air Room Air 05/17/18 05/17/18 08:39 08:40 Pulse 83 83 B/P (MAP) 154/78 154/78 Intake and Output 05/16/18 05/16/18 05/17/18 15:00 23:00 07:00 Intake Total 600 ml 1080 ml 200 ml Output Total 600 ml Balance 600 ml 480 ml 200 ml ALEX MENARD MD May 17, 2018 09:56
--- NOTE | 2018-05-17 14:38 | DS ---
DATE OF DISCHARGE: 05/17/2018 HOSPITAL SUMMARY: A 62-year-old black male with ongoing pain in his left lower back, radiating to the left groin area and inguinal area for a few weeks. CBC, sed rate, chemistry profile, and urinalysis were all unremarkable. CT scan of the abdomen and pelvis was unremarkable except for small cyst in the left kidney and liver. Films of the pelvis and left hip were all unremarkable as well. Lumbar spine MRI showed degenerative changes throughout the lumbar spine with mild left lateral central spinal stenosis at L1-L2 and L2-L3 that could fit the pattern of his pain being in L2 or L3 distribution. Dr. Londono had attempted to do sacroiliac joint injection, but the patient did not tolerate and this was not done. Dr. Brower saw him in the pain clinic and performed epidural steroid injection uneventfully, but the patient has had no pain relief from this. He has declined to take gabapentin and failed to respond to the steroids and Celebrex and opioids. He plans to go to [facility] now to get a second opinion regarding his ongoing pain as it is even possible that this could be a surgical problem in the upper lumbar spine. All questions were answered and copies of lab and the disk of MRI will be given to him to take with him for their evaluation. FINAL DIAGNOSES: Intractable left lower back and groin pain, likely secondary to L2 or L3 radiculopathy, left side. OPERATIONS AND PROCEDURES: Lumbar epidural steroid injection. COMPLICATIONS: None. CONSULTATIONS: Dr. Cedeno of Urology, Dr. Londono and Dr. Cb Brower. DISPOSITION: Home meds remain the same. He will take no new medications as he did not tolerate the new meds or respond to them. He plans to go to [facility] for second opinion at this point. He is safe ambulatory. PROGNOSIS: Uncertain. MICHAEL HEATH MD DR: VINOD/juan JOB#: [id number] / [id number]
== END 2018-05-17 10:00 | disposition home or self-care (01) | DRG 552 ==
LOC: ER 13:41 → ED HOLD 15:37 → 5 SOUTH 18:04
PROVIDERS: ADMIT Family Medicine; ATTEND Family Medicine
PROC: 3E0R33Z Introduction of Anti-inflammatory into Spinal Canal, Percutaneous Approach (ICD-10-PCS; principal; 2018-05-16)
PROC: 3E0R3BZ Introduction of Anesthetic Agent into Spinal Canal, Percutaneous Approach (ICD-10-PCS; 2018-05-16)
DX: M47.26 Other spondylosis with radiculopathy, lumbar region (principal); L10.0 Pemphigus vulgaris; E78.5 Hyperlipidemia, unspecified; I12.9 Hypertensive chronic kidney disease with stage 1 through stage 4 chronic kidney disease, or unspecified chronic kidney disease; K76.89 Other specified diseases of liver; M41.9 Scoliosis, unspecified; M70.62 Trochanteric bursitis, left hip; N18.2 Chronic kidney disease, stage 2 (mild); N28.1 Cyst of kidney, acquired; S76.012A Strain of muscle, fascia and tendon of left hip, initial encounter; Z82.49 Family history of ischemic heart disease and other diseases of the circulatory system; Z88.8 Allergy status to other drugs, medicaments and biological substances
CPT/HCPCS: 36415; 62323; 72100; 72148; 73502; 74177; 80048; 81001; 85025; 85651; 96372; J1030; J1040; J1100; J1885; J2270; J2930; J7512; Q9965; Q9966; Q9967; 97530; 99285-25